=== PATIENT | female | born 1965 | race Two or more races ===

== ENCOUNTER 2025-09-20 03:20 | Emergency (ER) | payer MEDICAID, SELFPAY ==
[2025-09-20 03:24] VITALS: BMI 28.7
[2025-09-20 03:37] VITALS: BP 148/83; PULSE 80; RESP 18; TEMP 36.7; O2SAT 98
--- NOTE | 2025-09-20 03:38 | XR_ITS ---
Examination: CT brain head without contrast. 2-D sagittal coronal reconstructions Date and time of exam: September 20, 2025, 0356 hours, comparison February 18, 2024 INDICATIONS: Ground-level fall today with injury of the head, head pain CTDI: vol (mGy): 47 DLP: (mGycm): 947 Technique: Multiple CT axial sections of the brain have been obtained, 5 mm slice thickness. Contrast has not been administered. 2-D sagittal, coronal reconstructions have been obtained Low dose protocols were performed. One or more of the following dose reduction techniques were used; automated exposure control, adjustment of the mA and/or KV according to patient size, use of iterative reconstruction technique. Findings: No significant ventricular enlargement. Intra-axial or extra-axial hemorrhage density is not seen. No mass effect or midline shift Basal cisterns are not remarkable. Fourth ventricle is midline. Cranial vault intact. Impression: Negative for acute hemorrhage, mass effect or midline shift Advise clinical correlation and follow-up accordingly
--- NOTE | 2025-09-20 05:32 | PD.EDRME ---
Rapid Medical Screening Exam RME Arrival date/time: 09/20/25 03:20 This is a case of 60-year-old female who came in in the emergency room due to head injury history of present illness started yesterday when the patient was walking hit his head on a corner of the TV sustaining contusion forehead now with headache and dizziness thus patient decided to sought consult here in the emergency room Chief Complaint: Head Injury Time Seen by Provider: 09/20/25 03:38 Vital signs: Vital Signs Temperature 98.1 F 09/20/25 03:37 Pulse Rate 80 09/20/25 03:37 Respiratory Rate 18 09/20/25 03:37 Blood Pressure 148/83 H 09/20/25 03:37 Pulse Oximetry (%) 98 09/20/25 03:37 Oxygen Delivery Method Room Air 09/20/25 03:37 Exam: Neuro normal contusion forehead Clinical Impression: Contusion forehead head injury
--- NOTE | 2025-09-20 05:34 | PRELIM_ITS ---
CT scan of the head without intravenous contrast (axial sections with sagittal and coronal reformats) September 20, 2025 0356 hours Clinical History: head injury Comparison: No prior study is available for comparison. Findings: There is no evidence of intracranial hemorrhage, mass effect or midline shift. There are periventricular white matter hypodensities, compatible with chronic small vessel ischemia. There is mild volume loss. The calvarium is intact. There is mild mucosal thickening in the right maxillary sinus. The mastoid air cells and the other visualized paranasal sinuses are clear. Impression: No evidence of intracranial hemorrhage, midline shift or calvarial fracture. Periventricular chronic small vessel ischemia and volume loss. Report Electronically Signed By: Prince Escamilla 09/20/2025 5:33:28 AM [EST]
--- NOTE | 2025-09-20 05:44 | PD.EDHEAD ---
ED Head Injury RME/HPI General Chief complaint: Head Injury Stated complaint: HEAD INJURY Time Seen by Provider: 09/20/25 03:38 Arrival date/time: 09/20/25 03:20 This is a case of 60-year-old female with no medical history came in in the emergency room due to head injury history of present illness started 1 day prior to arrival in the emergency room when the patient accidentally hit his forehead hardly on a corner of the TV sustaining contusion of forehead due to headache and dizziness this patient decided to sought consult here in the emergency room no blurring of vision Limitations: no limitations RME / HPI RME / HPI Narrative: 09/20/25 03:20 This is a case of 60-year-old female who came in in the emergency room due to head injury history of present illness started yesterday when the patient was walking hit his head on a corner of the TV sustaining contusion forehead now with headache and dizziness thus patient decided to sought consult here in the emergency room Exam: Neuro normal contusion forehead Impression: Contusion forehead head injury Related Data Home Medications ?Medication ?Instructions ?Recorded ?Confirmed simvastatin 20 mg tablet (Zocor) 20 mg PO HS #0 tabs 03/02/05/06/24 levothyroxine 25 mcg tablet 25 mcg PO QDAY 09/25/19 05/06/24 acetaminophen 500 mg tablet 500 mg PO Q6H PRN Pain 05/06/24 05/06/24 aripiprazole 15 mg tablet (Abilify) 15 mg PO QDAY 05/06/24 05/06/24 clonidine HCl 0.1 mg tablet 0.1 mg PO DAILY 05/06/24 05/06/24 divalproex 500 mg tablet,extended 1,000 mg PO HS 05/06/24 05/06/24 release 24 hr (Depakote ER) ferrous sulfate 325 mg (65 mg 325 mg PO QDAY 05/06/24 05/06/24 iron) tablet lisinopril 10 mg tablet 10 mg PO QDAY 05/06/24 05/06/24 metformin 500 mg tablet,extended 500 mg PO BID 05/06/24 05/06/24 release 24 hr Previous Rx's ?Medication ?Instructions ?Recorded hydrocodone 5 mg-acetaminophen 325 1 tab PO Q6H #20 tabs 05/09/24 mg tablet Allergies Allergy/AdvReac Type Severity Reaction Status Date / Time No Known Allergies Allergy Verified 09/20/25 03:22 Review of Systems Review of Systems Systems Reviewed: All systems reviewed, normal except as documented Constitutional Constitutional: Reports system reviewed and no additional complaints, except as documented and Reports as per HPI Eyes Eyes: Reports system reviewed and no additional complaints, except as documented and Reports as per HPI ENT Ears, Nose, Mouth, and Throat: Reports system reviewed and no additional complaints, except as documented and Reports as per HPI Cardiovascular Cardiovascular: Reports system reviewed and no additional complaints, except as documented and Reports as per HPI Respiratory Respiratory: Reports system reviewed and no additional complaints, except as documented and Reports as per HPI Musculoskeletal Musculoskeletal: Reports system reviewed and no additional complaints, except as documented and Reports as per HPI Neurologic Neurologic: Reports system reviewed and no additional complaints, except as documented and Reports as per HPI Past Medical History Past Medical History NEUROLOGIC: Positive Neurological Disorders and Giordano's Palsy (Left x2); Negative Seizures CARDIAC: Positive Cardiac Disorders, Hypercholesterolemia and Hypertension; Negative Congestive Heart Failure RESPIRATORY: Negative Chronic Obstructive Pulmonary Disease (COPD) GASTROINTESTINAL: Positive Gastrointestinal Disorders, Gall Bladder Disease and Obesity GENITOURINARY: Positive Renal Disease (Dr Best); Negative Genitourinary Disorders REPRODUCTIVE: Positive Previous Pregnancies (4) MUSCULOSKELETAL: Negative Musculoskeletal Disorders or Arthritis ENDOCRINE: Positive Endocrine Disorders, Diabetes Mellitus Type 2 and Hypothyroidism; Negative Diabetes Mellitus Type 1 HEMATOLOGIC: Positive Blood Disorders and Anemia PSYCHO/SOCIAL: Positive Psychiatric Problems, Bipolar Disorder and Anxiety OTHER HISTORY: Positive Hospitalization (mental health) and Chicken Pox; Negative Autoimmune Disease, Shingles, Falls, Blood Transfusions, Blood Transfusion Reaction, Anesthesia Reactions, Chemotherapy, Radiation Therapy or Cancer Family History FAMILY HISTORY: Positive Family Cardiac Disorders and Family Cancer; Negative Family Psychiatric Problems, Family Respiratory Disorders, Family Gastrointestinal Problems, Family Surgery or Family Anesthesia Reaction Surgical History SURGICAL: Positive Tubal Ligation; Negative Cardiac Surgery Social History SMOKING STATUS: Never smoker SUBSTANCE USE: does not use ED Exam General Limitations: Present no limitations General appearance: Present alert, in no apparent distress and other (It is awake alert oriented not in distress nontoxic looking well-hydrated well-nourished) Head Head exam: Present atraumatic, normocephalic, normal inspection and other (Contusion forehead no crepitation no deformity no laceration no abrasion) Eye Eye exam: Present normal appearance, PERRL, EOMI and other (PERRL EOM intact normal conjunctiva no papilledema) ENT ENT exam: Present normal exam, normal oropharynx, mucous membranes moist and other Neck Neck exam: Present normal inspection, full ROM and trachea midline; Absent tenderness, meningismus, lymphadenopathy or thyromegaly Chest Chest inspection: Present normal inspection and symmetric chest wall rise; Absent tenderness Respiratory Respiratory exam: Present normal lung sounds bilaterally; Absent respiratory distress, wheezes, stridor, accessory muscle use or prolonged expiratory phase Cardiovascular Cardiovascular exam: Present regular rate, normal rhythm and normal heart sounds; Absent bradycardia, tachycardia, irregular rhythm or systolic murmur Abdominal Exam Abdominal exam: Present soft and normal bowel sounds; Absent distention, tenderness, guarding, rebound, rigidity, diminished bowel sounds, hyperactive bowel sounds, hypoactive bowel sounds or organomegaly Extremities Exam Extremities exam: Present normal inspection and full ROM Back Exam Back exam: Present normal inspection and full ROM Neurological Exam Neurological exam: Present alert, oriented X3, CN II-XII intact, normal gait, reflexes normal and other (Awake alert oriented x 4 no focal deficit GCS 15/15 steady gait motor or sensory reflex are all normal in all extremities); Absent motor sensory deficit Psychiatric Psychiatric exam: Present normal affect and normal mood Skin Skin exam: Present warm, dry, intact, normal color and other (Contusion forehead) Course Quality Measures none Orders Category Date Time Status CT head/brain wo con Stat Exams 09/20/25 03:38 Taken Vital Signs Vital signs: Vital Signs Temperature 98.1 F 09/20/25 03:37 Pulse Rate 80 09/20/25 03:37 Respiratory Rate 18 09/20/25 03:37 Blood Pressure 148/83 H 09/20/25 03:37 Pulse Oximetry (%) 98 09/20/25 03:37 Oxygen Delivery Method Room Air 09/20/25 03:37 Oxygen saturation is 98% on room air Head Injury MDM Narrative MDM Narrative:: This is a case of 60-year-old female with no medical history came in in the emergency room due to head injury history of present illness started 1 day prior to arrival in the emergency room when the patient accidentally hit his forehead hardly on a corner of the TV sustaining contusion of forehead due to headache and dizziness this patient decided to sought consult here in the emergency room no blurring of vision physical examination patient is awake alert oriented not in distress nontoxic looking well-hydrated well-nourished PERRL EOM intact normal conjunctiva no palpable edema HEENT exam is normal and unremarkable neck exam is normal neurological exam is normal awake alert oriented x 4 no focal deficit GCS 15/15 steady gait memory intact no slurring speech no facial droop CN II to XII is normal motor or sensory reflex are all normal in all extremities CT scan showed normal unremarkable patient sustained a head injury and forehead contusion head injury precaution was discussed with the patient for any worsening symptoms or any emergent concern return precaution in the emergency room was advised she will also follow-up with PCP for reevaluation Patient was discharged with comfortable condition walking with stable gait. Patient verbalized no further complains explained diagnosis and answered patient question. Patient is comfortable with the proposed management plan including the need to follow up with his/her primary care physician and any specialist if applicable Discussed patient for any urgent condition or worsening sx, He/She needed to go to emergency room immediately or call 911. Patient acknowledge the responsibility to follow up as instructed and to monitor her/his symptoms. For any persistence of the symptoms for more than 3-5 days return precaution advised. Discussed the result of the test and was given printed discharge instruction Patient data External records reviewed:: [facility] previous records Clinical information provided by:: patient Social determinants that could affect healthcare access:: none Patient has the following chronic illnesses:: None How is presenting disease/condition affected by chronic disease/condition?: no chronic disease Evaluation data The following diagnostics were reviewed and interpreted by me:: radiology exam(s) Lab and/or radiology exams considered but not ordered:: Reviewed Interpretation Summary: Reviewed Medications / Prescriptions Medications or Prescriptions considered but not ordered:: Given Medication administrations:: Given Consultations Consultation(s) initiated? (list below): No Diagnosis Differential diagnosis head injury: concussion without loss of consciousness and closed head injury Most likely diagnosis given after review of the tests above:: Head injury forehead contusion Admission Indicated Admission indicated?: not indicated Explain why admission is indicated or not indicated:: Not indicated Admission Request Was there a request for admission?: No Admission Attestation Admission request attestation: Not indicated Disposition Plan Disposition Plan: Discharge Discharge Attestation Discharge Attestation: The patient and all family members were given an opportunity to ask questions and understood the discharge instructions. Discharge instructions specifically effects, indications for sooner follow up or return to the emergency department, and the expected course of current diagnosis. Patient condition: Stable Discharge Plan Plan Patient Disposition: HOME (Self Care) Patient condition on transfer: Stable Prescriptions/Referrals Prescriptions/Med Rec: No Action simvastatin [Zocor] 20 MG tablet 20 mg PO HS Qty: 0 levothyroxine 25 mcg Tablet 25 mcg PO QDAY clonidine HCl 0.1 mg Tablet 0.1 mg PO DAILY acetaminophen 500 mg Tablet 500 mg PO Q6H PRN (Reason: Pain) ferrous sulfate 325 mg (65 mg iron) Tablet 325 mg PO QDAY lisinopril 10 mg Tablet 10 mg PO QDAY divalproex [Depakote ER] 500 mg Tablet Extended Release 24 Hr 1,000 mg PO HS metformin 500 mg Tablet Extended Release 24 Hr 500 mg PO BID aripiprazole [Abilify] 15 mg Tablet 15 mg PO QDAY hydrocodone-acetaminophen 5-325 mg tablet 1 tab PO Q6H MDD 4 Qty: 20 0RF Referrals: Colton Alfaro MD [Primary Care Provider, Family Practice] - In 1 week Problem List Clinical Impression: Head injury, Forehead contusion Patient/Caregiver Discharge Instructions Education Materials: ED Facial Contusion, ED Head Injury (Adult) Additional Instructions: Follow-up with your primary care physician in 2 days for reevaluation for any worsening symptoms or any emergent concerns such as headache nausea vomiting dizziness blurring of vision numbness weakness tingling sensation memory loss unsteady gait return to the emergency room immediately or call 911 ice pack to contusion is advised Tylenol as needed for pain is advised Print Language: Romanian Stand Alone Forms: Gina Award Info., Patient Portal Info Letter PA/CHACE Supervising Physician SUMAN/[facility]ACE Supervising Physician: Dr. Beck
[2025-09-20 05:49] VITALS: RESP 16
== END 2025-09-20 05:50 | disposition home or self-care (01) ==
PROVIDERS: Emergency Provider Emergency Medicine; PCP Family Medicine
DX: S00.83XA Contusion of other part of head, initial encounter (principal); W22.8XXA Striking against or struck by other objects, initial encounter
CPT/HCPCS: 70450; 99282

== ENCOUNTER 2025-10-17 18:08 | Emergency (ER) | payer MEDICAID, SELFPAY ==
[2025-10-17 18:09] VITALS: BMI 29.0
[2025-10-17 18:48] VITALS: BP 157/83; PULSE 73; RESP 18; TEMP 36.8; O2SAT 99
--- NOTE | 2025-10-17 18:58 | XR_ITS ---
EXAMINATION: Mandible series 5 views TECHNIQUE: viral Anderson, right and left sagittal Juliana Parisi mandible series 5 views Date and time: October 17, 2025, 1902 hours INDICATIONS: Jaw pain after eating today. FINDINGS: No fracture. No efra cortical bone destruction No opaque foreign body Condyles appear grossly intact IMPRESSION: No fracture If pain persists, suggest CT maxillofacial study follow-up
--- NOTE | 2025-10-17 20:45 | PD.EDDENTL ---
ED Dental RME/HPI General Chief complaint: General Adult/Misc Complain Stated complaint: JAW POPPING AND PAIN WHEN OPENING MOUTH SINCE NOON Time Seen by Provider: 10/17/25 18:35 Arrival date/time: 10/17/25 18:08 This is a case of 60-year-old female with history of diabetes thyroid disease hypothyroid bipolar disease hypertension came in in the emergency room due to bilateral jaw pain today patient states that her jaw keeps popping and noted to have pain when opening her mouth no other symptoms noted no throat ear nose or dental pain [place] any injury or trauma Limitations: no limitations Related Data Home Medications ?Medication ?Instructions ?Recorded ?Confirmed simvastatin 20 mg tablet (Zocor) 20 mg PO HS #0 tabs 03/02/15 05/06/24 levothyroxine 25 mcg tablet 25 mcg PO QDAY 09/25/19 05/06/24 acetaminophen 500 mg tablet 500 mg PO Q6H PRN Pain 05/06/24 05/06/24 aripiprazole 15 mg tablet (Abilify) 15 mg PO QDAY 05/06/24 05/06/24 clonidine HCl 0.1 mg tablet 0.1 mg PO DAILY 05/06/24 05/06/24 divalproex 500 mg tablet,extended 1,000 mg PO HS 05/06/24 05/06/24 release 24 hr (Depakote ER) ferrous sulfate 325 mg (65 mg 325 mg PO QDAY 05/06/24 05/06/24 iron) tablet lisinopril 10 mg tablet 10 mg PO QDAY 05/06/24 05/06/24 metformin 500 mg tablet,extended 500 mg PO BID 05/06/24 05/06/24 release 24 hr Previous Rx's ?Medication ?Instructions ?Recorded hydrocodone 5 mg-acetaminophen 325 1 tab PO Q6H #20 tabs 05/09/24 mg tablet baclofen 20 mg tablet 20 mg PO BID PRN muscle spasm #10 10/17/25 tabs ibuprofen 600 mg tablet 600 mg PO Q8H PRN pain #20 tabs 10/17/25 Allergies Allergy/AdvReac Type Severity Reaction Status Date / Time No Known Allergies Allergy Verified 10/17/25 18:10 Review of Systems Review of Systems Systems Reviewed: All systems reviewed, normal except as documented Constitutional Constitutional: Reports system reviewed and no additional complaints, except as documented, Reports as per HPI and Denies headache(s) Eyes Eyes: Reports system reviewed and no additional complaints, except as documented and Reports as per HPI ENT Ears, Nose, Mouth, and Throat: Reports system reviewed and no additional complaints, except as documented, Reports as per HPI, Denies abnormal hearing, Denies bleeding gums, Denies change in voice, Denies dental pain, Denies disequilibrium, Denies dizziness, Denies dry mouth, Denies dysphagia, Denies ear discharge, Denies otalgia, Denies epistaxis, Denies facial pain, Denies halitosis, Denies headache(s), Denies hearing loss, Denies hoarseness, Denies lip swelling, Denies mouth lesions, Denies mouth pain, Denies nasal congestion, Denies nasal discharge, Denies nasal obstruction, Denies nasal trauma, Denies neck mass, Denies neck pain, Denies nose pain, Denies odynophagia, Denies post nasal drip, Denies sinus pain, Denies sinus pressure, Denies sore throat, Denies throat swelling, Denies tinnitus, Denies tongue swelling and Denies vertigo Cardiovascular Cardiovascular: Reports system reviewed and no additional complaints, except as documented and Reports as per HPI Respiratory Respiratory: Reports system reviewed and no additional complaints, except as documented and Reports as per HPI Gastrointestinal Gastrointestinal: Reports system reviewed and no additional complaints, except as documented, Reports as per HPI, Denies dysphagia and Denies odynophagia Genitourinary Genitourinary: Reports system reviewed and no additional complaints, except as documented and Reports as per HPI Musculoskeletal Musculoskeletal: Reports system reviewed and no additional complaints, except as documented, Reports as per HPI and Denies neck pain Neurologic Neurologic: Reports system reviewed and no additional complaints, except as documented, Reports as per HPI, Denies abnormal hearing, Denies disequilibrium, Denies dizziness, Denies headache(s) and Denies vertigo Allergic/Immunologic Allergic/Immunologic: Denies lip swelling, Denies throat swelling and Denies tongue swelling Past Medical History Past Medical History NEUROLOGIC: Positive Neurological Disorders and Giordano's Palsy (Left x2); Negative Seizures CARDIAC: Positive Cardiac Disorders, Hypercholesterolemia and Hypertension; Negative Congestive Heart Failure RESPIRATORY: Negative Chronic Obstructive Pulmonary Disease (COPD) GASTROINTESTINAL: Positive Gastrointestinal Disorders, Gall Bladder Disease and Obesity GENITOURINARY: Positive Renal Disease (Dr Best); Negative Genitourinary Disorders REPRODUCTIVE: Positive Previous Pregnancies (4) MUSCULOSKELETAL: Negative Musculoskeletal Disorders or Arthritis ENDOCRINE: Positive Endocrine Disorders, Diabetes Mellitus Type 2 and Hypothyroidism; Negative Diabetes Mellitus Type 1 HEMATOLOGIC: Positive Blood Disorders and Anemia PSYCHO/SOCIAL: Positive Psychiatric Problems, Bipolar Disorder and Anxiety OTHER HISTORY: Positive Hospitalization (mental health) and Chicken Pox; Negative Autoimmune Disease, Shingles, Falls, Blood Transfusions, Blood Transfusion Reaction, Anesthesia Reactions, Chemotherapy, Radiation Therapy or Cancer Family History FAMILY HISTORY: Positive Family Cardiac Disorders and Family Cancer; Negative Family Psychiatric Problems, Family Respiratory Disorders, Family Gastrointestinal Problems, Family Surgery or Family Anesthesia Reaction Surgical History SURGICAL: Positive Tubal Ligation; Negative Cardiac Surgery Social History SMOKING STATUS: Never smoker SUBSTANCE USE: does not use ED Exam General Limitations: Present no limitations General appearance: Present alert, in no apparent distress and other (Patient is awake alert oriented not in distress nontoxic looking well-hydrated well nourished) Head Head exam: Present atraumatic, normocephalic and normal inspection Eye Eye exam: Present normal appearance, PERRL and EOMI ENT ENT exam: Present normal exam, normal oropharynx, mucous membranes moist and other (nose ear and throat were normal exam dental exam is normal all teeth and gum is intact noted mild tenderness on bilateral mandibular area but no crepitation no deformity no clicking sound no no popping sound noted patient is able to open widely and close the mouth tightly with no difficulty with mil) Neck Neck exam: Present normal inspection, full ROM and trachea midline; Absent tenderness, meningismus, lymphadenopathy or thyromegaly Chest Chest inspection: Present normal inspection and symmetric chest wall rise; Absent tenderness, rash or abscess Respiratory Respiratory exam: Present normal lung sounds bilaterally; Absent respiratory distress, wheezes, stridor, accessory muscle use or prolonged expiratory phase Cardiovascular Cardiovascular exam: Present regular rate, normal rhythm and normal heart sounds; Absent bradycardia, tachycardia, irregular rhythm, systolic murmur or diastolic murmur Abdominal Exam Abdominal exam: Present soft and normal bowel sounds; Absent distention, tenderness, guarding, rebound, rigidity, diminished bowel sounds, hyperactive bowel sounds, hypoactive bowel sounds or organomegaly Extremities Exam Extremities exam: Present normal inspection and full ROM Back Exam Back exam: Present normal inspection and full ROM Neurological Exam Neurological exam: Present alert, oriented X3, CN II-XII intact, normal gait and reflexes normal; Absent motor sensory deficit Psychiatric Psychiatric exam: Present normal affect and normal mood Skin Skin exam: Present warm, dry, intact and normal color Course Quality Measures none Orders Category Date Time Status XR mandible min 4V Stat Exams 10/17/25 18:58 Completed HYDROcodone*/APAP 5/325 [[place] 5/325] Med 10/17/25 20:38 Discontinued 1 tab PO X1 ONE Vital Signs Vital signs: Vital Signs Temperature 98.3 F 10/17/25 18:48 Pulse Rate 73 10/17/25 18:48 Respiratory Rate 18 10/17/25 18:48 Blood Pressure 157/83 H 10/17/25 18:48 Pulse Oximetry (%) 99 10/17/25 18:48 Oxygen Delivery Method Room Air 10/17/25 18:48 Oxygen saturation is 99% Dental / Oral MDM Narrative MDM Narrative:: This is a case of 60-year-old female with history of diabetes thyroid disease hypothyroid bipolar disease hypertension came in in the emergency room due to bilateral jaw pain today patient states that her jaw keeps popping and noted to have pain when opening her mouth no other symptoms noted no throat ear nose or dental pain [place] any injury or trauma physical examination patient is awake alert oriented not in distress nontoxic looking well-hydrated well-nourished nose ear and throat were normal exam dental exam is normal all teeth and gum is intact noted mild tenderness on bilateral mandibular area but no crepitation no deformity no clicking sound no no popping sound noted patient is able to open widely and close the mouth tightly with no difficulty with mild pain suggestive of TMJ syndrome the rest of the physical examination and neurological exam is normal and unremarkable x-ray of the mandible were normal no fracture no dislocation at this point patient will be discharged home in stable condition I have a long discussion for her to see an ENT specialist for further evaluation and treatment of TMJ syndrome soft food no biting etc. is a worsening symptoms or any emergent concern return precaution in the ER is advsied Patient was discharged with comfortable condition walking with stable gait. Patient verbalized no further complains explained diagnosis and answered patient question. Patient is comfortable with the proposed management plan including the need to follow up with his/her primary care physician and any specialist if applicable Discussed patient for any urgent condition or worsening sx, He/She needed to go to emergency room immediately or call 911. Patient acknowledge the responsibility to follow up as instructed and to monitor her/his symptoms. For any persistence of the symptoms for more than 3-5 days return precaution advised. Discussed the result of the test and was given printed discharge instruction Patient data External records reviewed:: [facility] previous records Clinical information provided by:: patient Social determinants that could affect healthcare access:: none Patient has the following chronic illnesses:: None How is presenting disease/condition affected by chronic disease/condition?: no chronic disease Evaluation data The following diagnostics were reviewed and interpreted by me:: radiology exam(s) Lab and/or radiology exams considered but not ordered:: Reviewed Interpretation Summary: Reviewed Medications / Prescriptions Medications or Prescriptions considered but not ordered:: given Medication administrations:: Medication Administration History Discontinued Medications Hydrocodone Bitart/Acetaminophen (Hydrocodone/[place] 5/325 Tablet) 1 tab PO X1 ONE Stop: 10/17/25 20:39 Given Consultations Consultation(s) initiated? (list below): No Diagnosis Dental Differential Diagnosis: dental caries, toothache, dental abscess, fracture of tooth and other (TMJ syndrome) Most likely diagnosis given after review of the tests above:: TMJ syndrome Admission Indicated Admission indicated?: not indicated Explain why admission is indicated or not indicated:: Not indicated Admission Request Was there a request for admission?: No Admission Attestation Admission request attestation: Not indicated Disposition Plan Disposition Plan: Discharge Discharge Attestation Discharge Attestation: The patient and all family members were given an opportunity to ask questions and understood the discharge instructions. Discharge instructions specifically effects, indications for sooner follow up or return to the emergency department, and the expected course of current diagnosis. Patient condition: Stable Discharge Plan Plan Patient Disposition: HOME (Self Care) Patient condition on transfer: Stable Prescriptions/Referrals Prescriptions/Med Rec: New ibuprofen 600 mg tablet 600 mg PO Q8H PRN (Reason: pain) Qty: 20 0RF baclofen 20 mg tablet 20 mg PO BID PRN (Reason: muscle spasm) Qty: 10 0RF No Action simvastatin [Zocor] 20 MG tablet 20 mg PO HS Qty: 0 levothyroxine 25 mcg Tablet 25 mcg PO QDAY clonidine HCl 0.1 mg Tablet 0.1 mg PO DAILY acetaminophen 500 mg Tablet 500 mg PO Q6H PRN (Reason: Pain) ferrous sulfate 325 mg (65 mg iron) Tablet 325 mg PO QDAY lisinopril 10 mg Tablet 10 mg PO QDAY divalproex [Depakote ER] 500 mg Tablet Extended Release 24 Hr 1,000 mg PO HS metformin 500 mg Tablet Extended Release 24 Hr 500 mg PO BID aripiprazole [Abilify] 15 mg Tablet 15 mg PO QDAY hydrocodone-acetaminophen 5-325 mg tablet 1 tab PO Q6H MDD 4 Qty: 20 0RF Referrals: Colton Alfaro MD [Primary Care Provider, Family Practice] - In 1 week Problem List Clinical Impression: Jaw pain, Bilateral temporomandibular joint disorder, unspecified Patient/Caregiver Discharge Instructions Education Materials: TMJ Tx, ED TMJ Syndrome Additional Instructions: Follow-up with your primary care physician in 2 days for reevaluation and to be referred to ENT specialist for possible TMJ syndrome worsening symptoms or any emergent concern call 911 or go to the nearest emergency room take your medication as directed Eat soft foods. Apply heat or cold to the face in combination with exercises to gently stretch and strengthen the jaw muscles. Take [id number] medications, for example nonsteroidal anti-inflammatory drugs (NSAIDs), like ibuprofen. Reduce habits such as jaw clenching, gum chewing, or nail biting. Print Language: [place] Stand Alone Forms: Gina Award Info., Patient Portal Info Letter PA/RETORT FIRER Supervising Physician PA/RETORT FIRER Supervising Physician: dr mora
[2025-10-17 20:48] VITALS: BP 165/92; PULSE 73; RESP 16; TEMP 36.7; O2SAT 100
[2025-10-17] MEDS: HYDROcodone/APAP 5/325 TABLET 1 TAB PO (20:49)
== END 2025-10-17 20:53 | disposition home or self-care (01) ==
PROVIDERS: Emergency Provider Emergency Medicine; PCP Family Medicine
DX: M26.603 Bilateral temporomandibular joint disorder, unspecified (principal)
CPT/HCPCS: 70110; 99283; A9270